=== PATIENT | female | born 1990 | race Hispanic/Latino ===

== ENCOUNTER 2017-10-29 11:27 | Inpatient (IN) | payer OTHER ==
[~2017-10-29] VITALS: Ht 154.9 cm; Wt 135.0 kg
--- OUTSIDE RECORDS SUMMARY | ~2017-10-29 | XMS | Clinical Summary ---
Demographics + + + | Address | [address] [address] [facility] [address] | | | [place] [address] | + + + | Home Phone | | + + + | Preferred Language | Unknown | + + + | Marital Status | | + + + | Congregation Affiliation | JORGE CATH[employer] | + + + | Race | Other Race | + + + | Ethnic Group | or | + + + Author + + + | Author | [facility] | + + + | Organization | [facility] | + + + | Address | Unknown | + + + | Phone | Unavailable | + + + Support + + + + + | Name | Relationship | Address | Phone | + + + + + | PREM BARBOSA | ECON | [address] | | | | | [place] [address] | | + + + + + Care Team Providers + +------+ + | Care Janitorial Manager Name | Role | Phone | + +------+ + | None Per Patient, None Per | PP | Unavailable | | Pt | | | + +------+ + Allergies No Known Allergies Current Medications + + +---------+---------+------+------+-------+ | Prescription | Sig. | Disp. | Refills | Star | End | Statu | | | | | | t | Date | s | | | | | | Date | | | + + +---------+---------+------+------+-------+ | | Take 1 tablet by | | | | | Activ | | Vit27&Eqqilhv-Fnro-C | mouth daily | | | | | e | | A 60 mg iron-1 mg | | | | | | | | per tablet | | | | | | | + + +---------+---------+------+------+-------+ | Iron 18 mg Tab | Take by mouth | | | | | Activ | | | | | | | | e | + + +---------+---------+------+------+-------+ | oxyCODONE | Take 1 tablet (5 mg | 60 | 0 | 03/1 | | Activ | | (ROXICODONE) 5 mg | total) by mouth | tablet | | 7/20 | | e | | immediate release | every 4 hours as | | | 17 | | | | tablet | needed for Pain | | | | | | + + +---------+---------+------+------+-------+ | ibuprofen | Take 1 tablet (600 | 60 | 0 | 03/1 | | Activ | | (ADVIL;MOTRIN) 600 | mg total) by mouth | tablet | | 7/20 | | e | | mg tablet | every 6 hours as | | | 17 | | | | | needed | | | | | | + + +---------+---------+------+------+-------+ | docusate sodium | Take 1 capsule (100 | 60 | 0 | 03/1 | | Activ | | (COLACE) 100 mg | mg total) by mouth 2 | capsule | | 7/20 | | e | | capsule | times daily | | | 17 | | | + + +---------+---------+------+------+-------+ | acetaminophen | Take 2 tablets (650 | 60 | 0 | 03/ | | Activ | | (TYLENOL) 325 mg | mg total) by mouth | tablet | | 02/28 | | e | | tablet | every 6 hours as | | | 17 | | | | | needed | | | | | | + + +---------+---------+------+------+-------+ Active Problems + + + | Problem | Noted Date | + + + | Single delivery by section | 10/24/2016 | + + + | Obesity complicating , childbirth, or puerperium, | 10/24/2016 | | antepartum | | + + + | GDM, class A2 | 10/23/2016 | + + + | Macrosomia of fetus affecting management of mother in third | 10/23/2016 | | trimester | | + + + | History of delivery affecting | 10/23/2016 | + + + | arrhythmia affecting , antepartum | 10/23/2016 | + + + + + | Overview: Per cardiology, need ECHO after delivery | + + + + + | Breech presentation with problem | 10/23/2016 | + + + Immunizations + + + + | Name | Dates Previously Given | Next Due | + + + + | Influenza | 07/11/2016 | | + + + + | Tdap | 07/11/2016 | | + + + + Family History + + +------+ + | Medical History | Relation | Name | Comments | + + +------+ + | Heart Disease | Father | | | + + +------+ + | Cancer | Paternal | | | | | Grandmoth | | | | | er | | | + + +------+ + + +------+--------+ + | Relation | Name | Status | Comments | + +------+--------+ + | Father | | | | + +------+--------+ + | Paternal Grandmother | | | | + +------+--------+ + Social History + +-------+ +--------+------+ | Tobacco Use | Types | Packs/Day | Years | Date | | | | | Used | | + +-------+ +--------+------+ | Never Smoker | | | | | + +-------+ +--------+------+ + +---+---+---+ | Smokeless Tobacco: | | | | | Never Used | | | | + +---+---+---+ + + +---------+ + | Alcohol Use | Drinks/We | oz/Week | Comments | | | ek | | | + + +---------+ + | No | | | | + + +---------+ + + + + + + | Sexually Active | Control | Partners | Comments | + + + + + | Yes | | | | + + + + + + + + | Sex Assigned at | Date Recorded | | | | + + + | Not on file | | + + + Last Filed Vital Signs + + + + | Vital Sign | Reading | Time Taken | + + + + | Blood Pressure | 113/78 | 10/27/2016 9:25 AM PDT | + + + + | Pulse | 80 | 10/27/2016 9:25 AM PDT | + + + + | Temperature | 36.9 C (98.4 F) | 10/27/2016 9:25 AM PDT | + + + + | Respiratory Rate | 18 | 10/27/2016 9:25 AM PDT | + + + + | Oxygen Saturation | 97% | 10/25/2016 3:55 PM PDT | + + + + | Inhaled Oxygen | - | - | | Concentration | | | + + + + | Weight | 126.1 kg (278 lb) | 10/23/2016 5:00 PM PDT | + + + + | Height | 157.5 cm (5' 2") | 10/23/2016 5:02 PM PDT | + + + + | Body Mass Index | 50.85 | 10/23/2016 5:00 PM PDT | + + + + Plan of Treatment + + + + + | Health Maintenance | Due Date | Last Done | Comments | + + + + + | HIV Screening | | | | | | 5 | | | + + + + + | Cervical Cancer | | | | | Screening | 1 | | | + + + + + | IMM Influenza (#1) | | 07/11/2016 | | | | 7 | | | + + + + + | Tetanus | | 07/11/2016 | | | | 6 | | | + + + + + Results Not on filefrom Last 3 Months Insurance + +--------+ +--------+ + + | Payer | Benefi | Subscriber | Type | Phone | Address | | | t Plan | ID | | | | | | / | | | | | | | Group | | | | | + +--------+ +--------+ + + | [place] | MEDICA | [id number] | Medica | [phone] [address] [id number] | | | [place] | | id | [phone] | [place] [address] | | | DMAP | | | | | | | CAWEM | | | | | + +--------+ +--------+ + + + +--------+ +--------+ + + | Guarantor Name | Accoun | Relation to | Date | Phone | Billing Address | | | t Type | Patient | of | | | | | | | | | | + +--------+ +--------+ + + | FIDELINA JAIN | Person | Self [birth year] Home: | [address] [address] [facility] [address] | | | al/Fam | | 1989 | [phone] | [address] | | | [place] | | | [phone] | + +--------+ +--------+ + + Advance Directives Patient has advance directives. For more information, please contact:[employer] [place] [address]
[2017-11-06] MEDS ORDERED: PRENATAL VITAM1 EACH PO (07:47)
[2017-11-06] MEDS ORDERED: HUMULIN N100 UNIT/1 SUB-Q (07:48)
[2017-11-06] MEDS ORDERED: HUMALOG100 UNIT/2 SUB-Q (07:49)
--- NOTE | 2017-11-06 14:21 | NUR ---
11/06/17 1421 Yohana Thompson 1358 PT ARRIFVED TO ROOM AWAKE AND TALKING. RESP EVEN AND UNLABORED ON ROOM AIR. VSS. PT REPORTS PAIN 2/10 AND NO NAUSEA. TWO IVS IN PLACE ONE IN EACH HAND, LEFT HAND INFUSING LR WITH 20 OF PIT. LOOK AT [facility] CHARTING FOR REST OF VS. 1404 CBG 111. 1418 [facility] RN AT BEDSIDE TALKING TO PT.
--- NOTE | 2017-11-21 12:43 | OR ---
[address] [address] Signed DATE OF OPERATION: 11/06/2017 SURGEON: Yaya Sy DO PREOPERATIVE DIAGNOSES: 1. Term intrauterine . 2. History of prior x2. 3. Insulin-dependent gestational diabetes mellitus with poor control. 4. History of shoulder dystocia. 5. Morbid obesity. POSTOPERATIVE DIAGNOSES: 1. Term intrauterine . 2. History of prior x2. 3. Insulin-dependent gestational diabetes mellitus with poor control. 4. History of shoulder dystocia. 5. Morbid obesity. 6. Uterine windown w/ at lower uterine segment. SURGEON: AUGUSTUS Sy DO OPTICAL SCIENTIST: Wiley Sheehan MD ANESTHESIA: Spinal. ESTIMATED BLOOD LOSS: 750 mL. COMPLICATIONS: None. SPECIMENS: None. FINDINGS: Viable female weighing 8 pounds 3 ounces with Apgars of 8 and 9 at 1 and 5 minutes respectively. Estimated blood loss 750 mL. Normal tubes and ovaries Electronically Signed By: YAYA SY DO 11/21/17 1243 PATIENT NAME: JERAMY POLLACKFIDELINA OPERATIVE REPORT DATE OF : 89 REPORT #: [id number] PHYSICIAN: YAYA SY DO PCP: NO PRIMARY CARE PHYSICIAN REPORT IS CONFIDENTIAL AND NOT TO BE RELEASED WITHOUT AUTHORIZATION [address] [address] Signed bilaterally. The lower uterine segment with uterine window noted with little to no myometrium overlying scar w/ clear fliud noted beyond serosa. The hysterotomy was closed in two layers, but remains thin. Hemostasis was at the end of the procedure. The bladder was backfilled and found to be intact and normal. COMPLICATIONS: None. INDICATIONS: Ms. Jeramy Pollack is a pleasant 27-year-old, G5, P4, with two prior C-sections with intrauterine at 37 weeks and 6 days gestation. Her is complicated by insulin-dependent gestational diabetes with poor control despite increasing doses of insulin. She also has a history of shoulder dystocia, morbid obesity, and prior x2. Due to her difficulty in controlling her diabetes, it was decided to proceed with repeat low transverse section at 37 weeks and 6 days gestation. Risks, benefits, and alternatives were discussed in detail and the patient understands and wished to proceed with the procedure. Of note, the patient's blood sugar was slightly elevated in 130s upon admission and an insulin drip was initiated and glucose was 111 at the start of the case. TECHNIQUE: The patient was taken to the operating room where a time-out was performed to confirm correct patient and correct procedure. Spinal anesthesia was adequately established and the patient was prepped in the supine position with a bump on her right hip. Herman catheter was inserted. ICPs were on and running and Ancef 3 g preoperatively were given per skip protocol. No preop heparin was indicated. A Pfannenstiel skin incision was made through the prior Pfannenstiel scar and carried down to and through the fascia in the midline. The fascia was nicked in the midline and extended bilaterally using sharp dissection with Boggs scissors. The fascia was grasped with Tegan's, elevated, and the underlying rectus muscle dissected off sharply and bluntly. The rectus was then divided in the midline using blunt dissection and the peritoneum grasped with hemostats, elevated and incised sharply. Peritoneal incision was extended bilaterally using a combination of sharp and blunt dissection. Upon examining the lower uterine segment, it was noted to be ballooning with little to no myometrium overlying the prior scar. An Henry uterine retractor was placed and hysterotomy was performed using a surgical scalpel. Hysterotomy was extended bilaterally using blunt dissection. The surgeon's hand was then placed into the uterine cavity. The head elevated and delivered in the RAUL position without difficulty. The remainder of the delivered with the assistance of fundal pressure without any difficulty. Upon delivery, the was vigorous and cried and the oral nasopharynx were bulb suctioned. The cord was doubly clamped and cut and the was handed to the waiting pediatric team Electronically Signed By: YAYA SY DO 11/21/17 1243 PATIENT NAME: FIDELINA JAIN OPERATIVE REPORT DATE OF : [birth year] REPORT #: [id number] PHYSICIAN: YAYA SY DO PCP: NO PRIMARY CARE PHYSICIAN REPORT IS CONFIDENTIAL AND NOT TO BE RELEASED WITHOUT AUTHORIZATION [facility] [address] [place] [id number] Signed for further care. Cord blood was obtained for routine analysis and the placenta was expressed intact with a centrally inserted three-vessel cord. The uterine cavity was cleared off any remaining products of conception or clot and was noted to be firming with Pitocin. Hysterotomy was closed using 0 Vicryl in a running locked suture. The bladder was then backfilled with 210 mL of sterile milk and the bladder was noted to be well away from the hysterotomy. With the bladder backfilled, a 2nd horizontal imbricating suture of 0 Monocryl was applied to reinforce and imbricate the hysterotomy. Good hemostasis was appreciated; however, the lower uterine segment remains thin. This was discussed intraoperatively with the patient and her and we recommended that she pursue no further pregnancies given the risk of uterine rupture. The lower uterine segment was then irrigated and found to be hemostatic and Evicel was applied at the lower uterine segment. The Henry uterine manipulator was removed. The pelvis is examined and found to have normal bilateral ovaries and tubes. There are some omental adhesions to the peritoneum just above the peritoneal incision. These were not taken down. ACell sheet was then applied to the lower uterine segment and the peritoneum was reapproximated with 2-0 Vicryl in a running nonlocked suture. The rectus was then reapproximated using 0 Vicryl in interrupted simple sutures and the rectus was examined and made hemostatic with electrical Bovie cautery. ACell powder was then applied. Fascia was reapproximated using 0 Vicryl and a running nonlocked suture after ensuring that the rectus was hemostatic. Subcu was then made hemostatic with electrocautery with a Bovie and ACell powder was also applied. The subcu was closed in two layers of 3-0 Vicryl and running nonlocked sutures. The skin was reapproximated using Quill in a subcuticular stitch with good hemostasis and cosmesis. The uterus was Crede'd for scant blood and noted to be firm. The patient was then taken to the PACU in good and stable condition. Sponge, needle, and instrument count was correct x2 at the end the procedure. Dr. Sheehan was present and participated in all portions of the procedure. DO RENAY Chisholm/RED /[id number] Copies: Electronically Signed By: YAYA SY, DO 11/21/17 1243 PATIENT NAME: FIDELINA JAIN OPERATIVE REPORT DATE OF : [birth year] REPORT #: [id number] PHYSICIAN: YAYA SY DO PCP: NO PRIMARY CARE PHYSICIAN REPORT IS CONFIDENTIAL AND NOT TO BE RELEASED WITHOUT AUTHORIZATION [address] [place] [address] Signed ~ Electronically Signed By: YAYA SY DO 11/21/17 1243 PATIENT NAME: FIDELINA JAIN OPERATIVE REPORT DATE OF : [birth year] REPORT #: [id number] PHYSICIAN: YAYA SY DO PCP: NO PRIMARY CARE PHYSICIAN REPORT IS CONFIDENTIAL AND NOT TO BE RELEASED WITHOUT AUTHORIZATION
== END 2017-11-08 15:20 | disposition home or self-care (01) | DRG 766 ==
LOC: FBC 11-06 05:23
PROVIDERS: ADMIT Obstetrics & Gynecology
PROC: 10D00Z1 Extraction of Products of Conception, Low, Open Approach (ICD-10-PCS; principal; 2017-11-06 06:45)
DX: O34.211 Maternal care for low transverse scar from previous cesarean delivery (principal); N85.8 Other specified noninflammatory disorders of uterus; O24.424 Gestational diabetes mellitus in childbirth, insulin controlled; O99.214 Obesity complicating childbirth; E66.01 Morbid (severe) obesity due to excess calories; O36.63X0 Maternal care for excessive fetal growth, third trimester, not applicable or unspecified; O99.344 Other mental disorders complicating childbirth; F41.9 Anxiety disorder, unspecified; Z79.899 Other long term (current) drug therapy; Z3A.37 37 weeks gestation of pregnancy; Z37.0 Single live birth
CPT/HCPCS: 01961; 36415; 85027; C1763; J0690; J1100; J1170; J1644; J1885; J2274; J2300; J2370; J2405; J2590; J3010; J7030; J7042; J7120

== ENCOUNTER 2021-01-08 08:12 | Emergency (ER) | payer BC ==
[~2021-01-08] VITALS: Ht 154.9 cm; Wt 134.7 kg
[~2021-01-08 08:12] MED LIST: HUMALOG100 UNIT/2 SUB-Q; HUMULIN N100 UNIT/1 SUB-Q; PRENATAL VITAM1 EACH PO
== END 2021-01-08 09:50 | disposition home or self-care (01) ==
LOC: ED 08:12
DX: S43.102A Unspecified dislocation of left acromioclavicular joint, initial encounter (principal); X58.XXXA Exposure to other specified factors, initial encounter
CPT/HCPCS: 73030; 99283-25; A9270